=== PATIENT | female | born 1985 ===

== ENCOUNTER 2024-03-20 15:06 | Outpatient (AMB) | payer OTHER, SELFPAY ==
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
[2024-03-20 15:10] VITALS: BP 118/68; PULSE 81; O2SAT 97; BMI 39.5
== END 2024-03-20 16:00 | disposition home or self-care (01) ==
PROVIDERS: PCP Student in an Organized Health Care Education/Training Program; Visit Provider Nurse Practitioner Family
DX: R51.9 Headache, unspecified (principal); G43.009 Migraine without aura, not intractable, without status migrainosus
CPT/HCPCS: 99204

== ENCOUNTER → 2024-03-20 15:06 | Outpatient (BNVA) | payer OTHER, SELFPAY | PROVIDERS: PCP Student in an Organized Health Care Education/Training Program; Visit Provider Nurse Practitioner Family | DX: R51.9 Headache, unspecified (principal); G43.009 Migraine without aura, not intractable, without status migrainosus | CPT/HCPCS: 99202 ==

== ENCOUNTER → 2024-05-11 09:27 | Outpatient (BNV) | payer OTHER, SELFPAY | PROVIDERS: PCP Student in an Organized Health Care Education/Training Program; Visit Provider Radiology Diagnostic Radiology | DX: G43.009 Migraine without aura, not intractable, without status migrainosus (principal) | CPT/HCPCS: 70551 ==

== ENCOUNTER 2024-05-11 09:30 | Outpatient (REF) | payer OTHER, SELFPAY ==
--- NOTE | ~2024-05-11 | MR_ITS ---
EXAMINATION: MR BRAIN WITHOUT IV CONTRAST HISTORY: G43.009 - Migraine without aura, not intractable, without status migraine... TECHNIQUE: Sagittal T1, and axial T1, FLAIR, T2, gradient echo, and diffusion weighted MR images of the brain were obtained. COMPARISON: None FINDINGS: The brain parenchyma is unremarkable, demonstrating normal mcallister/white differentiation. No foci of abnormal signal intensity are identified. The ventricular system is normal in size and configuration. There is no mass effect or midline shift. No intra or extra-axial fluid collections are identified. There are no foci of restricted diffusion. Normal vascular flow voids are noted in the basilar and carotid arteries. The visualized paranasal sinuses are clear. MR/MR head/brain wo con IMPRESSION: Unremarkable MRI of the brain without contrast. Electronically signed by: Kyler Huntley MD 05/13/2024 07:28 AM [facility]
--- OUTSIDE RECORDS SUMMARY | 2024-05-11 09:34 | XMS_ITS | Clinical Summary ---
Author Organization [email or web address] [facility] it Address [address] [place] [address] Care Team Providers Care Diet Aid Name Role Phone Lester Valiente MD Primary Care Provider [phone] Surgical History Surgery Date Site/Laterality Comments OTHER SURGICAL HISTORY PROCEDURE: DENIES PREVIOUS SURGERY Medical History Medical History Date Comments Depression DX:Depression Migraine DX:Migraine Family History Medical History Relation Name Comments Diabetes Brother Diabetes Father Hypertension Father Diabetes Mother Hyperlipidemia Mother Hypertension Mother Relation Name Status Comments Brother Alive 4 half brothers Father Alive Mother Alive Sister Alive 2 half sisters, does nto know Social History Tobacco Use Types Packs/Day Years Used Date Smoking Tobacco: Never Smokeless Tobacco: Never Alcohol Use Standard Drinks/Week Comments Yes 0 (1 standard drink = 0.6 oz pur e alcohol) Sex and Gender Information Value Date Recorded Sex Assigned at Not on file Gender Identity Not on file Sexual Orientation Not on file Obstetrics History Last Filed Vital Signs Vital Sign Reading Time Taken Comments Blood Pressure 122/92 06/22/2023 10:24 AM EST Sitting L Arm Pulse 90 06/22/2023 10:24 AM EST Temperature - - Respiratory Rate - - Oxygen Saturation - - Inhaled Oxygen Concentration - - Weight 100 kg (220 lb 12.8 oz) 06/22/2023 10:24 AM EST Height 160 cm (5' 3 ) 06/22/2023 10:24 AM EST Body Mass Index 39.11 06/22/2023 10:24 AM EST Plan of Treatment Health Maintenance Due Date Last Done Comments Hepatitis B Vaccines (4 of 4 - 4-dose series) 05/13/1997 04/30/1997, 02/21/1997, 01/21/1997 Cervical Cancer Screening: Pap Smear 2006 Cholesterol Screening (Lipid Panel) 03/20/2022 Depression Screening 03/20/2022 HIV Screening 03/20/2022 Hepatitis C Screening 03/20/2022 Social Influencers of Health Screening 03/20/2022 DTaP,Tdap,and Td Vaccines (8 - Td or Tdap) 09/04/2023 09/03/2013, 06/21/2001, 12/16/1990, Additional history exists COVID-19 Vaccine ( season) 2023 Influenza Vaccine (#1) 2023 HIB Vaccines Completed 12/28/1987 IPV Vaccines Completed 12/28/1987, 04/1987, 09/15/1986, Additional history exists MMR Vaccines Completed 04/17/1998, 01/13/1987 HPV Vaccines Aged Out No longer eligi ble based on patient's age to complete this topic Hepatitis A Vaccines Aged Out No long er eligible based on patient's age to complete this topic Meningococcal ACWY Vaccine Aged Out N o longer eligible based on patient's age to complete this topic Pneumococcal Vaccine: Pediatrics (0 to 5 Years) and At-Risk Patients (6 to 64 Years) Aged Out No longer eligible based on patient's age to complete this topic RSV Immunization Patients Under 20 months Aged Out No longer eligible based on patient's age to complete this topic Varicella Vaccines Aged Out No longer eligible based on patient's age to complete this topic Care Teams Diet Aid Relationship Specialty Start Date End Date Lester Valiente MD [address] [place] [address] PCP - General Internal Medicine 11/15/21
== END 2024-05-11 09:31 | disposition home or self-care (01) ==
LOC: HO.MRI 09:30
PROVIDERS: PCP Student in an Organized Health Care Education/Training Program; Visit Provider Nurse Practitioner Family
DX: G43.009 Migraine without aura, not intractable, without status migrainosus (principal)
CPT/HCPCS: 70551